=== PATIENT | female | born 1960 | race African-American/Black ===

== ENCOUNTER 2020-11-20 | Emergency (ER) | payer OTHER ==
[~2020-11-20] VITALS: Ht 160 cm; Wt 71.7 kg
[2020-11-20 00:43] LABS: ABSOLUTE NEUTROPHILS 3.4 thou/uL (1.4-8.2); BASOPHILS 0.6 % (0.0-2.0); EOSINOPHILS 1.8 % (0.0-3.0); HEMATOCRIT 38.4 % (37.0-47.0); LYMPHOCYTES 35.2 % (24.0-44.0); MCH 32.9 pg (26.0-34.0); MCHC 33.8 g/dL (28.0-37.0); MCV 97.3 fL (80.0-100.0); MONOCYTES 9.8 % (1.0-8.0); PLATELET COUNT 394 thou/uL (150-400); POLYS 52.6 % (36.0-66.0); RBC 3.94 mil/uL (4.20-5.00); RDW 12.6 % (10.5-14.5); WBC 6.5 thou/uL (4.0-11.0)
[2020-11-20 00:44] LABS: ANION GAP 11 mmol/L (7-16); BUN 10 mg/dL (7-18); CALCIUM 9.2 mg/dL (8.5-10.1); CHLORIDE 106 mmol/L (98-107); CO2 25 mmol/L (21-32); CREATININE 0.9 mg/dL (0.6-1.0); GLUCOSE 119 mg/dL (74-106); POTASSIUM 3.7 mmol/L (3.5-5.1); SODIUM 142 mmol/L (136-145)
[2020-11-20 00:56] LABS: ALBUMIN 3.9 g/dL (3.4-5.0); SGOT 12 U/L (15-37); SGPT 18 U/L (14-59); TOTAL BILIRUBIN 0.2 mg/dL (0.2-1.0); TOTAL PROTEIN 8.4 g/dL (6.4-8.2)
[2020-11-20 00:59] LABS: TROPONIN-I <0.06 ng/mL (<0.06)
[2020-11-20] MEDS ORDERED: SALONPAS1 EACH TRANSDERM (03:21)
[2020-11-20 03:28] VITALS: BP 133/89
--- NOTE | 2020-11-20 07:04 | EKG ---
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
== END 2020-11-20 04:04 | disposition home or self-care (01) ==
LOC: ER
PROVIDERS: Emergency Medicine
DX: J44.1 Chronic obstructive pulmonary disease with (acute) exacerbation (principal); R07.89 Other chest pain; J44.9 Chronic obstructive pulmonary disease, unspecified; F41.9 Anxiety disorder, unspecified; F31.9 Bipolar disorder, unspecified; I25.2 Old myocardial infarction; Z98.890 Other specified postprocedural states; Z87.442 Personal history of urinary calculi